=== PATIENT | male | born 1990 ===

== ENCOUNTER 2024-12-31 10:56 | Emergency (ER) | payer SELFPAY ==
[2024-12-31 11:39] VITALS: BP 154/98; PULSE 77; RESP 18; TEMP 36.7; O2SAT 99
--- NOTE | 2024-12-31 12:56 | ED_ITS ---
HPI - GI Bleed General Chief complaint: GI Bleed Stated complaint: blood in stool Time Seen by Provider: 12/31/24 12:57 Focused HPI: This is a 34 year old male that presents to the ER for blood in the stool. Reports when he wipes he sees bright red blood after bowel movements. No history of hemorrhoids or fissures. Reports he has been having some trouble with constipation. He is not taking anything for this. GENERAL: Well-appearing, well-nourished, and in no acute distress. HEAD: Normocephalic, atraumatic. CHEST: Clear to auscultation. ?No respiratory distress. HEART: Regular rate and rhythm.? NEURO: ?Alert and oriented x3. Patient screened in triage and initial orders placed.? ?Additional care and disposition to be based upon?diagnostic testing and treatment. Course Vital Signs Vital signs: Vital Signs Temperature 98.0 F 12/31/24 11:39 Pulse Rate 77 12/31/24 11:39 Respiratory Rate 18 12/31/24 11:39 Blood Pressure 154/98 H 12/31/24 11:39 Pulse Oximetry 99 12/31/24 11:39 Temperature 98.0 F 12/31/24 11:39 Pulse Rate 77 12/31/24 11:39 Respiratory Rate 18 12/31/24 11:39 Blood Pressure 154/98 H 12/31/24 11:39 Pulse Oximetry 99 12/31/24 11:39 Discharge Plan Discharge Clinical Impression: BRBPR (bright red blood per rectum) Patient Disposition: Elopement After Seen by Prov Condition: Guarded Prognosis Patient Language: Vietnamese Follow-up/Referrals: UNKNOWN,DOCTOR [Primary Care Provider] -
--- NOTE | 2024-12-31 14:42 | PC.NURSE ---
called at this time for MSE with no answer. another person said they saw him leave
== END 2024-12-31 17:06 | disposition left against medical advice (07) ==
LOC: ANHED 16:22
DX: K62.5 Hemorrhage of anus and rectum (principal)
CPT/HCPCS: 99199; 99281